=== PATIENT | male | born 1950 | race Caucasian/White ===

== ENCOUNTER 2023-09-29 14:13 | Outpatient (CLI) | payer MEDICARE | END 2023-09-29 14:14 | disposition home or self-care (01) | LOC: CSHULT 14:13 | PROVIDERS: ATTEND Urology | DX: N28.1 Cyst of kidney, acquired (principal) | CPT/HCPCS: 76770 ==

== ENCOUNTER 2025-09-29 08:50 | Outpatient (CLI) | payer MEDICARE | END 2025-09-29 08:51 | disposition home or self-care (01) | LOC: CSHULT 08:50 | PROVIDERS: ATTEND Urology | DX: N28.1 Cyst of kidney, acquired (principal) | CPT/HCPCS: 76770 ==